=== PATIENT | female | born 1940 | race Caucasian/White ===

== ENCOUNTER 2024-08-30 05:00 | Day surgery (SDC) | payer OTHER ==
[2024-08-23 13:19] VITALS: BP 135/60
[~2024-08-30] VITALS: Ht 160 cm; Wt 61.7 kg
[~2024-08-30 05:00] MED LIST: AMLODIPINE-OLM1 EAC2; ATORVASTATIN CA20 MG PO; COZAAR25 MG; MACROBID 100 M100 MG PO; PROPAFENONE HC225 M1; ULTRACET PO
[2024-08-30] MEDS ORDERED: MORPHINE SULFATE 4 MG/ML VIAL IV ONE ×2 (10:00→10:40)
[2024-08-30] MEDS ORDERED: MACROBID 100 M100 MG PO (10:09)
[2024-08-30] MEDS ORDERED: TRAM1TAB98 PO (10:09)
== END 2024-08-30 12:45 | disposition home or self-care (01) ==
LOC: CIR.AMB 05:00
PROVIDERS: ATTEND Obstetrics & Gynecology Gynecology
DX: N81.11 Cystocele, midline (principal); N81.5 Vaginal enterocele; N81.6 Rectocele; Z88.5 Allergy status to narcotic agent